=== PATIENT | female | born 1985 | race Caucasian/White ===

== ENCOUNTER 2018-03-01 19:05 | Emergency (ER) | payer OTHER ==
[~2018-03-01] VITALS: Ht 162.6 cm; Wt 97.5 kg
[2018-03-01] MEDS ORDERED: LEXAPRO20 MG PO (21:03)
[2018-03-01 21:57] LABS: URINE BILIRUBIN NEGATIVE (Negative); URINE BLOOD 2+ (Negative); URINE CLARITY CLEAR; URINE COLOR YELLOW; URINE GLUCOSE-RANDOM* NEGATIVE (Negative); URINE KETONES NEGATIVE (Negative); URINE LEUKOCYTES NEGATIVE (Negative); URINE NITRITE NEGATIVE (Negative); URINE PROTEIN (DIPSTICK) 1+ (Negative)
[2018-03-01 22:17] LABS: MUCUS >6 Heavy strn/LPF (None Seen)
[2018-03-01 22:18] LABS: CASTS None Seen /LPF (None Seen); SQUAMOUS 4-10 Moderate /LPF (0-3); URINE WBC 0-5 Rare /HPF (0-5)
[2018-03-01 22:19] LABS: URINE RBC 3-10 Few /HPF (0-2)
[2018-03-01 22:20] LABS: CALCIUM OXALATE 0-3 Few /LPF (None Seen)
[2018-03-01 23:11] VITALS: BP 00/00
== END 2018-03-01 22:40 | disposition home or self-care (01) ==
LOC: ER 19:05
PROVIDERS: Emergency Medicine
DX: T74.21XA Adult sexual abuse, confirmed, initial encounter (principal)